=== PATIENT | female | born 1940 | race Caucasian/White ===

== ENCOUNTER 2020-06-11 08:18 | Outpatient (CLI) | payer MEDICARE, SELFPAY ==
--- NOTE | 2020-06-11 08:27 | CT_ITS ---
WS: [id number] CT scan of the sinuses without IV contrast. Additional two-dimensional coronal and sagittal reconstru ction was performed. 06/11/2020 Clinical Data: SINUS PAIN Comparison: None. DLP: 723.[address] scans at [facility] use at least one of these dose optimization techniques: automat ed exposure control; mA and/or kV adjustment per patient size (includes targeted exams where dose is matched to clinical indication); or iterative reconstruction. Findings: The sinus cavities are clear with no air-fluid levels or bone destruction. The orbits are intact. The nasal bones are unremarkable. The intraorbital contents show no abnormalities. CT/CT sinus wo con* [id number] Impression: Negative CT scan of the sinuses.
== END 2020-06-11 08:19 | disposition home or self-care (01) ==
LOC: RADWPI 08:23
PROVIDERS: Family Provider Family Medicine; PCP Family Medicine; Visit Provider Family Medicine
DX: J34.89 Other specified disorders of nose and nasal sinuses (principal)
CPT/HCPCS: 70486

== ENCOUNTER 2021-05-18 11:42 | Outpatient (CLI) | payer MEDICARE, SELFPAY ==
--- NOTE | 2021-05-18 12:00 | XR_ITS ---
WS: [id number] TMJ, 5 views, 05/18/2021 Clinical Data: ARTHRALGIA OF L TEMPOROMANDIBULAR JOINT/JAW PAIN Comparison: None. Findings: Open and closed lateral views of the temporomandibular joints show normal excursion. There is no limi tation of motion. There is no erosion of the fossa or the mandibular condyle. No fractures are seen. The AP view shows normal condyles. XR/XR TMJ [id number] Impression: Normal temporomandibular joints.
--- NOTE | 2021-05-18 12:00 | XR_ITS ---
WS: [id number] Mandible series, 3 views, 05/18/2021. Clinical Data: ARTHRALGIA OF LEFT TEMPOROMANDIBULAR JOINT/JAW PAIN Comparison: None. Findings: There are no fractures or dislocations. The patient is edentulous. There may be an erosion of the ant erior right mandible measuring 0.9 cm. XR/XR mandible <4V [id number] Impression: 1. Possible erosion of the superior aspect of the anterior right mandible which may have been the site of the patient's tooth extraction. 2. Edentulous.
== END 2021-05-18 11:43 | disposition home or self-care (01) ==
LOC: LAB 11:57
PROVIDERS: PCP Family Medicine; Visit Provider Family Medicine
DX: M26.622 Arthralgia of left temporomandibular joint (principal)
CPT/HCPCS: 70100; 70330

== ENCOUNTER 2021-06-05 13:52 | Outpatient (CLI) | payer MEDICARE, SELFPAY ==
--- NOTE | 2021-06-05 14:30 | MR_ITS ---
WS: [id number] MRI HEAD WITH CONTRAST TECHNIQUE: Sagittal T1, T2 axial, T2 axial FLAIR, axial susceptibility weighted imaging, axial diffus ion weighted images, and coronal T2 images were obtained. Pre and post-T1 axial and post T1 coronal i mages. ADC and FSPGR images. CLINICAL INFORMATION: TRIGEMINAL NEURALGIA COMPARISON: None. FINDINGS: No evidence restricted diffusion to suggest acute ischemia. Ventricular system and basal cisterns are patent. Minimal small vessel changes. Moderate parenchymal volume loss. Chronic lacunar infarct left cerebellum. Normal vascular flow voids at the skull base. No extra-axial fluid collections. No evide nce of mass or mass effect. Paranasal sinuses and mastoid air cells are well aerated. No hemosiderin on the susceptibility weight ed images. Normal optic chiasm and pituitary infundibulum. Normal cavernous sinuses and Meckel's cave . Mild symmetric atrophy temporal lobes and hippocampal formations. No abnormal intracranial enhancement. Normal dural venous sinuses. No evidence of enhancing IAC or CP angle mass in the posterior fossa where visualized. Partially visualized trigeminal nerves appear no rmal. No other significant findings. MR/MR head wo/w con [id number] IMPRESSION: 1. No evidence of restricted diffusion to suggest acute ischemia. 2. Minimal small vessel changes with moderate parenchymal volume loss. 3. No evidence of enhancing IAC or CP angle mass where visualized. 4. Cavernous sinuses and Meckel's cave appear normal. 5. Visualized trigeminal nerves appear normal. However, if persistent symptom s recommend further evaluation with MRI without and with gadolinium enhancement with IAC protocol and high-resolution skull base imaging. 6. No abnormal intracranial enhancement. 7. No hemosiderin on the susceptibly weighted images. 8. Mild to moderate symmetric atrophy temporal lobes hippocampal formations.
[2021-06-05 15:00] LABS: Blood Urea Nitrogen 19 mg/dL (8-23)
[2021-06-05] MEDS: gadobenate dimeglumine 20 mL vial IV (15:01)
== END 2021-06-05 13:53 | disposition home or self-care (01) ==
LOC: RADWPI 13:57
PROVIDERS: PCP Family Medicine; Visit Provider Family Medicine
DX: G50.0 Trigeminal neuralgia (principal); G31.9 Degenerative disease of nervous system, unspecified
CPT/HCPCS: 70553; 82565; 84520; A9577

== ENCOUNTER → 2021-06-16 11:38 | Outpatient (BNVA) | payer MEDICARE, SELFPAY | PROVIDERS: PCP Family Medicine; Referring Provider Family Medicine; Visit Provider Specialist | DX: G50.0 Trigeminal neuralgia (principal); R20.0 Anesthesia of skin; R20.2 Paresthesia of skin | CPT/HCPCS: 36415; 82607; 99204 ==

== ENCOUNTER 2021-06-16 13:42 | Outpatient (CLI) | payer MEDICARE, SELFPAY ==
[2021-06-16 15:08] LABS: Vitamin B12 1163 pg/mL (232-1245)
== END 2021-06-16 13:43 | disposition home or self-care (01) ==
LOC: LAB 13:58
PROVIDERS: PCP Family Medicine; Visit Provider Specialist
DX: R20.0 Anesthesia of skin (principal); R20.2 Paresthesia of skin
CPT/HCPCS: 36415; 82607

== ENCOUNTER → 2022-03-15 11:01 | Outpatient (BNVA) | payer MEDICARE, SELFPAY | PROVIDERS: PCP Family Medicine; Visit Provider Family Medicine | DX: D64.9 Anemia, unspecified (principal); Z51.81 Encounter for therapeutic drug level monitoring; E55.9 Vitamin D deficiency, unspecified; E11.8 Type 2 diabetes mellitus with unspecified complications | CPT/HCPCS: 80053; 82306; 83036; 85025 ==

== ENCOUNTER 2022-04-04 08:53 | Emergency (ER) | payer MEDICARE, SELFPAY ==
[2022-04-04] VITALS (7 sets, daily range): BP systolic 127–192; BP diastolic 52–77; PULSE 46–87; RESP 10–97; O2SAT 19–98; BMI 21.2
--- NOTE | 2022-04-04 09:13 | ED_ITS ---
HPI - Animal Bite General: Chief Complaint: Animal Bite Stated Complaint: snake bite Time Seen by Provider: 04/04/22 08:54 Source: patient Mode of arrival: ambulatory Limitations: no limitations History of Present Illness: 82-year-old female who states she was out working in her yard this morning and was bit by a copperhead. Bit her on the right foot roughly 45 minutes to an hour ago she does have some pain she rates a 5 out of 10 and some slight swelling denies any other symptoms. Denies any other injuries. Associated symptoms: Deny chills, fever(s) or headache(s) Review of Systems Const: Denies: fever(s), chills, body aches or change in appetite Eyes: Denies: blurry vision or eye discomfort ENMT: Denies: throat pain or dental pain Card: Denies: chest pain Resp: Denies: dyspnea GI: Denies: abdominal pain, nausea, vomiting or diarrhea : Denies: dysuria Musc: Reports: extremity pain; Denies: neck pain or back pain Skin/Breast: Denies: rash Neuro: Denies: headache(s) Psych: Denies: depression Efrain/Lymph: Denies: easy bruising All/Imm: Denies: urticaria PFSH ED PFSH: Medical History (Updated 04/04/22 @ 12:37 by Lizbeth Phillips MD) Trigeminal neuralgia Social History Smoking and tobacco status: never smoked History of recent travel: No Physical Exam Const: COMMON NORMALS: no acute distress, patient oriented x3 and healthy appearing HENMT: COMMON NORMALS: normocephalic and atraumatic HEAD & SCALP: normocephalic and atraumatic Eye: COMMON NORMALS: Equal, round and reactive pupils present and EOMs intact bilaterally PUPIL: Yes Equal, round and reactive pupils present Neck/C-Spine: COMMON NORMALS: full ROM and supple Chest: COMMONS NORMALS: normal inspection of the chest and normal palpation of entire chest wall Resp: COMMON NORMALS: normal respiratory effort, No retractions, No use of accessory muscles and clear to auscultation bilaterally AUSCULTATION: clear to auscultation bilaterally Cardio: COMMON NORMALS: regular rate, regular rhythm and No murmurs present (Cardio) RATE: regular rate RHYTHM: regular rhythm GI: COMMON NORMALS: Normal to inspection, nondistended, normoactive bowel sounds present, Soft to palpation, non-tender and no masses PALPATION: Yes Soft to palpation Extremity: NARRATIVE EXTREMITY EXAM: Snake bite to right foot slight swelling to the foot Neuro: COMMON NORMALS: patient oriented x3, moves all extremities and no focal motor deficits Psych: COMMON NORMALS: mental status grossly normal, Normal thought process present and cooperative THOUGHT PROCESS: Normal thought process present Skin: COMMON NORMALS: no rashes or lesions noted and no wounds GENERAL SKIN EXAM: no rashes or lesions noted Course Vital Signs: Vital signs: Vital Signs Pulse Rate 79 04/04/22 12:52 Respiratory Rate 97 H 04/04/22 12:52 Blood Pressure 192/63 04/04/22 12:52 Pulse Oximetry 19 L 04/04/22 12:52 MDM - Animal Bite Medical Decision Making Patient presents with a snakebite to her right foot. She did have some swelling to the ankle. Initial blood work was all normal. I highly recommended patient to stay till 2 to check for swelling past the next joint next informed her she did have more swelling at the 6-hour [place] she did to be admitted and possibly get antivenom. She states that she has stuff to do at home and she cannot stay at the hospital any longer. She signed out AGAINST MEDICAL ADVICE. I did inform her this could get worsening and could be limb or life-threatening she understands this she states she has no pain and she feels fine currently she did state if she worsens should come back Lab Data : 04/04/22 08:12 04/04/22 08:12 Laboratory Results WBC 7.7 10^3/uL (4.0-10.0) 04/04/22 08:12 RBC 4.34 10^6/uL (4.1-5.3) 04/04/22 08:12 Hgb 13.3 g/dL (11.5-15.3) 04/04/22 08:12 Hct 41.4 % (37.0-47.0) 04/04/22 08:12 MCV 95.4 fl (81-99) 04/04/22 08:12 MCH 30.6 pg (28.0-34.0) 04/04/22 08:12 MCHC 32.1 g/dL (30.0-36.0) 04/04/22 08:12 RDW 12.3 % (12.1-15.1) 04/04/22 08:12 Plt Count 217 10^3/cmm (130-400) 04/04/22 08:12 MPV 11.5 fL (7.4-10.4) H 04/04/22 08:12 Neut % (Auto) 47.3 % 04/04/22 08:12 Lymph % (Auto) 41.1 % 04/04/22 08:12 [place] % (Auto) 7.6 % 04/04/22 08:12 Eos % (Auto) 3.1 % 04/04/22 08:12 Baso % (Auto) 0.6 % 04/04/22 08:12 Neut # (Auto) 3.65 10^3/uL (1.8-7.7) 04/04/22 08:12 Lymph # (Auto) 3.2 10^3/uL (0.8-4.8) 04/04/22 08:12 [place] # (Auto) 0.6 10^3/uL (0.2-0.9) 04/04/22 08:12 Eos # (Auto) 0.2 10^3/uL (0.0-0.8) 04/04/22 08:12 Baso # (Auto) 0.1 10^3/uL (0.0-0.1) 04/04/22 08:12 Nucleated RBC % (auto) 0 % 04/04/22 08:12 Nucleated RBCs # 0.0 /100WBC 04/04/22 08:12 PT 14.70 SECONDS (12.1-14.9) 04/04/22 08:12 INR 1.12 (0.8-1.2) 04/04/22 08:12 D-Dimer 1.11 ug/mIFEU (0-0.59) H 04/04/22 08:12 Sodium 138 mmol/L (136-145) 04/04/22 08:12 Potassium 4.1 mmol/L (3.5-5.1) 04/04/22 08:12 Chloride 100 mmol/L (98-107) 04/04/22 08:12 Carbon Dioxide 23 mmol/L (22-29) 04/04/22 08:12 Anion Gap 19.1 (5-19) H 04/04/22 08:12 BUN 16 mg/dL (8-23) 04/04/22 08:12 Creatinine 0.8 mg/dL (0.5-0.9) 04/04/22 08:12 GFR Calculation Not Reportable 04/04/22 08:12 Glucose 167 mg/dL (65-115) H 04/04/22 08:12 Calculated Osmolality 291 mOsm/kg (285-295) 04/04/22 08:12 Calcium 9.6 mg/dL (8.5-10.5) 04/04/22 08:12 Total Bilirubin 0.6 mg/dL (0.15-1.2) 04/04/22 08:12 AST 29 U/L (0-32) 04/04/22 08:12 ALT 25 U/L (0-33) 04/04/22 08:12 Alkaline Phosphatase 72 IU/L (35-105) 04/04/22 08:12 Total Protein 7.0 g/dL (6.6-8.7) 04/04/22 08:12 Albumin 3.8 g/dL (3.5-5.2) 04/04/22 08:12 Globulin 3.2 g/dL (1.3-4.6) 04/04/22 08:12 Discharge Plan Discharge Patient Disposition: Left Against Medical Advice Clinical Impression: Snake bite Condition: Stable Prescriptions: New hydrocodone-acetaminophen 5-325 mg tablet 1 tab PO Q6H PRN (Reason: pain) Qty: 14 0RF No Action ondansetron HCl [Zofran] 4 mg tablet 4 mg PO Q6H 0RF carbamazepine 100 mg capsule, ER multiphase 12 hr 100 mg PO DAILY 0RF vitamin B complex [B Complex-Vitamin B12] Tablet 1 tab PO DAILY 0RF metformin 500 mg tablet 500 mg PO BID 0RF metoprolol tartrate 25 mg tablet 25 mg PO BID 0RF lisinopril 10 mg tablet 10 mg PO DAILY 0RF furosemide 20 mg tablet 10 mg PO QAM 0RF pravastatin 40 mg tablet 40 mg PO DAILY 0RF allopurinol 300 mg tablet 150 mg PO DAILY 0RF lamotrigine [Lamictal] 100 mg tablet 100 mg PO BID Qty: 60 1RF Rx Instructions: take 50mg (1/2 a tab) twice a day for 2 weeks then increase to 100mg (1 tab) twice a day. Referrals: Hernando Hernandez MD [Primary Care Provider] - Discharge Diet: Advance as tolerated Discharge Activity: Resume usual activity Patient Instructions: Snake Bite (ED) Coding Level of Care Code ED Child Caregiver Private Home for Charmaine Fwd Exam Comprehensive
[2022-04-04] MEDS: ondansetron 2 mg/ML SDV 2 mL 4 MG IVP (09:18)
[2022-04-04] MEDS: morphine 4 mg/mL SDV 1 mL IVP (09:18)
[2022-04-04 09:19] LABS: Basophils # 0.1 10^3/uL (0.0-0.1); Basophils % 0.6 %; Eosinophils # 0.2 10^3/uL (0.0-0.8); Eosinophils % 3.1 %; Hematocrit 41.4 % (37.0-47.0); Hemoglobin 13.3 g/dL (11.5-15.3); Lymphocytes # 3.2 10^3/uL (0.8-4.8); Lymphocytes % 41.1 %; Mean Corpuscular HGB Conc 32.1 g/dL (30.0-36.0); Mean Corpuscular Hemoglobin 30.6 pg (28.0-34.0); Mean Corpuscular Volume 95.4 fl (81-99); Mean Platelet Volume 11.5 fL (7.4-10.4); Monocytes # 0.6 10^3/uL (0.2-0.9); Monocytes % 7.6 %; Neutrophils # 3.65 10^3/uL (1.8-7.7); Neutrophils % 47.3 %; Nucleated Red Blood Cells % 0 %; Platelet Count 217 10^3/cmm (130-400); Red Blood Count 4.34 10^6/uL (4.1-5.3); Red Cell Distribution Width 12.3 % (12.1-15.1); White Blood Count 7.7 10^3/uL (4.0-10.0)
[2022-04-04 09:32] LABS: INR 1.12 (0.8-1.2)
[2022-04-04 09:35] LABS: D Dimer 1.11 ug/mIFEU (0-0.59)
[2022-04-04 09:41] LABS: Alanine Aminotransferase 25 U/L (0-33); Albumin Level 3.8 g/dL (3.5-5.2); Alkaline Phosphatase 72 IU/L (35-105); Aspartate Amino Transferase 29 U/L (0-32); Blood Urea Nitrogen 16 mg/dL (8-23); Calcium 9.6 mg/dL (8.5-10.5); Carbon Dioxide 23 mmol/L (22-29); Chloride 100 mmol/L (98-107); Creatinine Clr Calc Pharmacy 44.7594; Globulin 3.2 g/dL (1.3-4.6); Glucose 167 mg/dL (65-115); Osmolality Calculated 291 mOsm/kg (285-295); Sodium 138 mmol/L (136-145); Total Bilirubin 0.6 mg/dL (0.15-1.2)
[2022-04-04 09:55] LABS: Anion Gap 19.1 (5-19); Potassium 4.1 mmol/L (3.5-5.1)
== END 2022-04-04 12:56 | disposition left against medical advice (07) ==
PROVIDERS: Emergency Provider Emergency Medicine; PCP Family Medicine
DX: T63.091A Toxic effect of venom of other snake, accidental (unintentional), initial encounter (principal); Z53.29 Procedure and treatment not carried out because of patient's decision for other reasons; M25.471 Effusion, right ankle
CPT/HCPCS: 80053; 85025; 85378; 85610; 96374; 96375; 99284; J2270; J2405

== ENCOUNTER → 2022-04-05 11:52 | Outpatient (BNVA) | payer MEDICARE, SELFPAY | PROVIDERS: PCP Family Medicine; Visit Provider Family Medicine | DX: T63.0 Toxic effect of snake venom (principal) | CPT/HCPCS: 80053; 85025; 85610; 85730 ==

== ENCOUNTER → 2022-07-22 13:52 | Outpatient (BNVA) | payer MEDICARE, SELFPAY | PROVIDERS: PCP Family Medicine; Visit Provider Family Medicine | DX: Z51.81 Encounter for therapeutic drug level monitoring (principal); E11.9 Type 2 diabetes mellitus without complications; G50.0 Trigeminal neuralgia | CPT/HCPCS: 80053; 83036; 85025 ==

== ENCOUNTER → 2022-11-16 11:36 | Outpatient (BNVA) | payer MEDICARE, SELFPAY | PROVIDERS: PCP Family Medicine; Visit Provider Family Medicine | DX: E53.8 Deficiency of other specified B group vitamins (principal); I10 Essential (primary) hypertension; Z13.220 Encounter for screening for lipoid disorders; E11.9 Type 2 diabetes mellitus without complications; Z51.81 Encounter for therapeutic drug level monitoring | CPT/HCPCS: 80053; 80061; 82607; 83036; 85025 ==

== ENCOUNTER → 2023-02-15 10:59 | Outpatient (BNVA) | payer MEDICARE, SELFPAY | PROVIDERS: PCP Family Medicine; Visit Provider Family Medicine | DX: E11.9 Type 2 diabetes mellitus without complications (principal); Z51.81 Encounter for therapeutic drug level monitoring | CPT/HCPCS: 80053; 83036; 85025 ==

== ENCOUNTER → 2023-06-14 10:29 | Outpatient (BNVA) | payer MEDICARE, SELFPAY | PROVIDERS: PCP Family Medicine; Visit Provider Family Medicine | DX: Z51.81 Encounter for therapeutic drug level monitoring (principal); E11.9 Type 2 diabetes mellitus without complications; E53.8 Deficiency of other specified B group vitamins | CPT/HCPCS: 80053; 82607; 83036; 85025 ==

== ENCOUNTER → 2023-10-12 10:04 | Outpatient (BNVA) | payer MEDICARE, SELFPAY | PROVIDERS: PCP Family Medicine; Visit Provider Family Medicine | DX: E55.9 Vitamin D deficiency, unspecified; E11.9 Type 2 diabetes mellitus without complications; R63.4 Abnormal weight loss; E03.9 Hypothyroidism, unspecified; Z13.220 Encounter for screening for lipoid disorders | CPT/HCPCS: 80053; 80061; 82306; 83036; 84443; 85025; 86141 ==

== ENCOUNTER → 2023-11-12 14:52 | Outpatient (BNVA) | payer MEDICARE, SELFPAY | PROVIDERS: PCP Family Medicine; Visit Provider Emergency Medicine | DX: J06.9 Acute upper respiratory infection, unspecified (principal) | CPT/HCPCS: 87400; 87426 ==

== ENCOUNTER → 2024-02-27 14:16 | Outpatient (BNVA) | payer MEDICARE, SELFPAY | PROVIDERS: PCP Family Medicine; Visit Provider Family Medicine | DX: E53.8 Deficiency of other specified B group vitamins (principal); E11.9 Type 2 diabetes mellitus without complications; Z51.81 Encounter for therapeutic drug level monitoring | CPT/HCPCS: 80053; 82607; 83036; 85025 ==

== ENCOUNTER → 2024-10-10 10:23 | Outpatient (BNVA) | payer MEDICARE, SELFPAY | PROVIDERS: PCP Family Medicine; Visit Provider Family Medicine | DX: Z13.220 Encounter for screening for lipoid disorders (principal); E53.8 Deficiency of other specified B group vitamins; E11.9 Type 2 diabetes mellitus without complications; Z51.81 Encounter for therapeutic drug level monitoring | CPT/HCPCS: 80053; 80061; 82306; 82607; 83036; 85025 ==

== ENCOUNTER 2025-02-26 14:11 | Outpatient (CLI) | payer MEDICARE, SELFPAY ==
--- NOTE | 2025-02-26 13:30 | USCV_ITS ---
Romi Morrow Age: 85 Gender: F : 1940 Exam Date: 02/26/2025 14:20 Ordering Phys: Hernando Hernandez MD Technologist: [place] [facility] [place]LE Swelling HISTORY: Lower extremity swelling. PROCEDURES: Venous duplex imaging was performed in bilateral lower extremities. The following venous structures were evaluated: common femoral vein, profunda vein, proximal portion of the greater saphenous vein, superficial femoral vein, and the popliteal vein. In addition, the posterior tibial and peroneal trunk were evaluated. Serial compression, augmentation maneuvers, and spectral Doppler flow evaluation were performed. FINDINGS: Normal 2-D Doppler and augmentation and compressibility throughout the lower extremity venous structures. Additional imaging through the proximal calf veins also reveals no thrombus. Limited evaluation of the greater saphenous vein is patent with no thrombus. CONCLUSIONS No DVT bilateral lower extremities. Dr. Katie Morales DO (Electronically Signed) Final Date: 26 February 2025 15:08 S
== END 2025-02-26 14:12 | disposition home or self-care (01) ==
LOC: RAD 14:12
PROVIDERS: PCP Family Medicine; Visit Provider Family Medicine
DX: M79.89 Other specified soft tissue disorders (principal); R30.0 Dysuria
CPT/HCPCS: 81000; 93970

== ENCOUNTER → 2025-05-14 11:52 | Outpatient (BNVA) | payer MEDICARE, SELFPAY | PROVIDERS: PCP Family Medicine; Visit Provider Family Medicine | DX: Z00.00 Encounter for general adult medical examination without abnormal findings (principal); R53.81 Other malaise; R53.83 Other fatigue; E55.9 Vitamin D deficiency, unspecified; E11.9 Type 2 diabetes mellitus without complications; E53.8 Deficiency of other specified B group vitamins; Z51.81 Encounter for therapeutic drug level monitoring | CPT/HCPCS: 80053; 82306; 82607; 83036; 84439; 84443; 85025 ==

== ENCOUNTER → 2025-08-15 09:49 | Outpatient (BNVA) | payer MEDICARE, SELFPAY | PROVIDERS: PCP Family Medicine; Visit Provider Family Medicine | DX: Z51.81 Encounter for therapeutic drug level monitoring (principal); E03.9 Hypothyroidism, unspecified; E11.9 Type 2 diabetes mellitus without complications; E53.8 Deficiency of other specified B group vitamins | CPT/HCPCS: 80053; 82607; 83036; 84439; 84443; 85025 ==